=== PATIENT | male | born 1985 ===

== ENCOUNTER 2018-07-16 22:55 | Emergency (ER) | payer BC, OTHER ==
[2018-07-16 23:06] VITALS: TEMP 96.7
[2018-07-16] MEDS ORDERED: SODIUM CHLORIDE 0.9% 1000ML 1,000 ML IV ONE (23:27)
[2018-07-16] MEDS ORDERED: DIPHENHYDRAMINE 50 MG/ML SOL IV ONE (23:28)
[2018-07-16] MEDS ORDERED: METOCLOPRAMIDE HCL 5 MG/ML 10 MG in SODIUM CHLORIDE 0.9% 50 ML 50 ML IV ONE (23:28)
[2018-07-16] MEDS ORDERED: KETOROLAC TROMETHAMINE 30 MG/ML SOL IV ONE (23:28)
[2018-07-16] MEDS ORDERED: METOCLOPRAMIDE HYDROCHLORIDE 5 MG/ML SOL ONE (23:44)
[2018-07-16] MEDS ORDERED: KETOROLAC TROMETHAMINE 30 MG/ML SOL ONE (23:44)
[2018-07-16] MEDS ORDERED: DIPHENHYDRAMINE 50 MG/ML SOL ONE (23:44)
[2018-07-17] MEDS ORDERED: SODIUM CHLORIDE 0.9% FLUSH 10 ML SOL IV PRN (01:05)
[2018-07-17 01:34] VITALS: RESP 20
[2018-07-17 02:00] VITALS: BP 135/72; PULSE 68; O2SAT 97
== END 2018-07-17 01:20 | disposition home or self-care (01) ==
LOC: ED 22:55
DX: G43.909 Migraine, unspecified, not intractable, without status migrainosus (principal)
CPT/HCPCS: 96365; 96374; 96375; 99070; 99283; 99285; J1200; J1885; J2765